=== PATIENT | male | born 1980 | race African-American/Black ===

== ENCOUNTER 2016-09-27 11:47 | Emergency (ER) | payer BC ==
[~2016-09-27] VITALS: Ht 177.8 cm; Wt 72.6 kg
[~2016-09-27 11:47] MED LIST: DOXYCYCLINE 10100 MG PO; NOHOMEMEDICATIONS; PREDNISONE 20 M20 MG PO; VENTOLIN17 GM INH
[2016-09-27 12:08] LABS: URINE BILIRUBIN NEGATIVE (Negative); URINE BLOOD TRACE (Negative); URINE COLOR YELLOW; URINE GLUCOSE-RANDOM* NEGATIVE (Negative); URINE KETONES NEGATIVE (Negative); URINE NITRITE NEGATIVE (Negative); URINE PROTEIN (DIPSTICK) NEGATIVE (Negative); URINE SPECIFIC GRAVITY 1.025 (1.003-1.035); URINE UROBILINOGEN 0.2 E.U./dl (0.2-1.0)
[2016-09-27 12:23] LABS: SQUAMOUS 4-10 Moderate /LPF (0-3)
[2016-09-27 12:24] LABS: CASTS None Seen /LPF (None Seen); CRYSTALS None Seen /LPF (None Seen)
[2016-09-27 12:25] LABS: URINE RBC 0-2 Rare /HPF (0-2)
[2016-09-27 12:26] LABS: BACTERIA 1-9 Few /HPF (None Seen)
[2016-09-27] MEDS ORDERED: BACTRIM DS TAB1 EACH PO (13:42)
[2016-09-27] MEDS ORDERED: MOBIC15 MG PO (13:42)
[2016-09-27] MEDS ORDERED: CYCLOBENZAPRINE5 MG PO (13:42)
[2016-09-27 13:47] VITALS: BP 126/85
== END 2016-09-27 13:47 ==
LOC: ER 11:47
PROVIDERS: Physician Assistant
DX: N39.0 Urinary tract infection, site not specified (principal); M62.830 Muscle spasm of back